=== PATIENT | female | born 2005 | race Caucasian/White ===

== ENCOUNTER 2023-09-19 23:12 | Emergency (ER) | payer OTHER ==
--- NOTE | 2023-09-19 23:44 | ER ---
Nurse's Notes [facility] Name: Elizabeth Briones Age: 17 yrs Sex: Female : 2005 Arrival Date: 09/19/2023 Time: 23:12 Bed IW1 Private MD: Diagnosis: Other acne-cystic Presentation: 09/19 23:22 Chief complaint: Patient states: she noticed an abscess on her left shoulder approx 3 ap3 days ago. patient reports the pain around it to be a 4/10 on the pain scale. Coronavirus screen: At this time, the client does not indicate any symptoms associated with coronavirus-19. Ebola Screen: No symptoms or risks identified at this time. Initial Sepsis Screen: Does the patient meet any 2 criteria? No. Patient's initial sepsis screen is negative. Does the patient have a suspected source of infection? Yes: Skin breakdown/wound. Risk Assessment: Do you want to hurt yourself or someone else? Patient reports no desire to harm self or others. Onset of symptoms was September 16, 2023. 23:22 Method Of Arrival: Ambulatory ap3 23:22 Acuity: JACKY 4 ap3 Triage Assessment: 23:25 General: Appears in no apparent distress. Behavior is calm, cooperative, appropriate ap3 for age. Pain: Complains of pain in left scapular area Pain currently is 4 out of 10 on a pain scale. Neuro: Level of Consciousness is awake, alert, obeys commands, Oriented to person, place, time, situation. Cardiovascular: Patient's skin is warm and dry. Respiratory: Airway is patent Respiratory effort is even, unlabored, Respiratory pattern is regular, symmetrical. Derm: Abscess located on left scapular area is nickel sized. Historical: - Allergies: 23:23 No Known Allergies; ap3 - Home Meds: 23:23 Lexapro Oral [Active]; levothyroxine oral [Active]; gabapentin oral [Active]; ap3 - PMHx: 23:23 Anxiety; Hypothyroidism; ap3 - Immunization history:: Client reports receiving the 2nd dose of the Covid vaccine. - Social history:: Smoking status: Patient denies any tobacco usage or history of. Screenin:26 [facility] ED Fall Risk Assessment (Adult) History of falling in the last 3 months, ap3 including since admission No falls in past 3 months (0 pts). Abuse screen: Denies threats or abuse. Nutritional screening: No deficits noted. Tuberculosis screening: No symptoms or risk factors identified. Assessment: 23:59 Reassessment: Patient appears in no apparent distress at this time. Patient is alert, bp oriented x 3, equal unlabored respirations, skin warm/dry/pink. Vital Signs: 23:22 BP 105 / 76; Pulse 103; Resp 17; Temp 98.7; Pulse Ox 100% ; Weight 49.9 kg; Pain 4/10; ap3 23:22 Pain Scale: Adult ap3 ED Course: 23:16 Patient arrived in ED. jj6 23:17 [facility] snw 23:17 Ricki Geronimo DO is Attending Physician. snw 23:23 Triage completed. ap3 23:26 Arm band placed on right wrist. ap3 23:58 Morgan Judge, RN is Primary Nurse. bp 23:59 Patient has correct armband on for positive identification. bp 23:59 No provider procedures requiring assistance completed. Patient did not have IV access bp during this emergency room visit. Administered Medications: 23:44 Drug: Doxycycline PO 100 mg PO once Route: PO; ap3 23:59 Follow up: Response: No adverse reaction bp 23:44 Drug: HYDROcodone-acetaminophen PO 5 mg-325 mg 1 tabs PO once Route: PO; ap3 09/20 00:00 Follow up: Response: No adverse reaction bp Medication: 09/19 23:59 VIS not applicable for this client. bp Outcome: 23:43 Discharge ordered by MD. snw 23:59 Discharged to home ambulatory, with family, bp 23:59 Condition: stable 23:59 Discharge instructions given to patient, Instructed on discharge instructions, follow up and referral plans. medication usage, Demonstrated understanding of instructions, follow-up care, medications, Prescriptions given X 2, 09/20 00:00 Patient left the ED. bp Signatures: Nhi Nascimento FNP-C KEEPER HEAD-Csnw Morgan Judge, RN RN bp Lisa Ortiz RN RN ap3 Reva Grimm jj6 Corrections: (The following items were deleted from the chart) 09/19 23:25 23:23 Home Meds: None; ap3 ap3 23:25 23:23 PMHx: Hypoglycemia; ap3 ap3
--- NOTE | 2023-09-19 23:44 | EDPHYS ---
Physician Documentation [facility] Name: Elizabeth Briones Age: 17 yrs Sex: Female : 2005 Arrival Date: 09/19/2023 Time: 23:12 Bed IW1 Private MD: ED Physician Ricki Geronimo HPI: 09/20 00:01 This 17 yrs old Female presents to ER via Ambulatory with complaints of Abscess. snw 00:01 The patient presents with an abscess of the left trapezius. Description: well snw demarcated, mobile with overlaying erythema. Onset: The symptoms/episode began/occurred acutely. Severity of symptoms: At their worst the symptoms were very mild, mild. The patient has experienced similar episodes in the past. The patient has not recently seen a physician. Historical: - Allergies: 09/19 23:23 No Known Allergies; ap3 - Home Meds: 23:23 Lexapro Oral [Active]; levothyroxine oral [Active]; gabapentin oral [Active]; ap3 - PMHx: 23:23 Anxiety; Hypothyroidism; ap3 - Immunization history:: Client reports receiving the 2nd dose of the Covid vaccine. - Social history:: Smoking status: Patient denies any tobacco usage or history of. ROS: 23:57 Constitutional: Negative for fever, chills, and weight loss, Eyes: Negative for injury, snw pain, redness, and discharge, ENT: Negative for injury, pain, and discharge, Neck: Negative for injury, pain, and swelling, Cardiovascular: Negative for chest pain, palpitations, and edema, Respiratory: Negative for shortness of breath, cough, wheezing, and pleuritic chest pain, Abdomen/GI: Negative for abdominal pain, nausea, vomiting, diarrhea, and constipation, Back: Negative for injury and pain, : Negative for injury, bleeding, discharge, and swelling, MS/Extremity: Negative for injury and deformity, Neuro: Negative for headache, weakness, numbness, tingling, and seizure, Psych: Negative for depression, anxiety, suicide ideation, homicidal ideation, and hallucinations, 23:57 Skin: Positive for abscess, of the left upper scapular area, Exam: 23:57 Constitutional: This is a well developed, well nourished patient who is awake, alert, snw and in no acute distress. Head/Face: Normocephalic, atraumatic. Eyes: Pupils equal round and reactive to light, extra-ocular motions intact. Lids and lashes normal. Conjunctiva and sclera are non-icteric and not injected. Cornea within normal limits. Periorbital areas with no swelling, redness, or edema. ENT: Nares patent. No nasal discharge, no septal abnormalities noted. Tympanic membranes are normal and external auditory canals are clear. Oropharynx with no redness, swelling, or masses, exudates, or evidence of obstruction, uvula midline. Mucous membranes moist. Neck: Trachea midline, no thyromegaly or masses palpated, and no cervical lymphadenopathy. Supple, full range of motion without nuchal rigidity, or vertebral point tenderness. No Meningismus. Chest/axilla: Normal chest wall appearance and motion. Nontender with no deformity. No lesions are appreciated. Cardiovascular: Regular rate and rhythm with a normal S1 and S2. No gallops, murmurs, or rubs. Normal PMI, no JVD. No pulse deficits. Respiratory: Lungs have equal breath sounds bilaterally, clear to auscultation and percussion. No rales, rhonchi or wheezes noted. No increased work of breathing, no retractions or nasal flaring. Abdomen/GI: Soft, non-tender, with normal bowel sounds. No distension or tympany. No guarding or rebound. No evidence of tenderness throughout. Back: No spinal tenderness. No costovertebral tenderness. Full range of motion. MS/ Extremity: Pulses equal, no cyanosis. Neurovascular intact. Full, normal range of motion. Neuro: Awake and alert, GCS 15, oriented to person, place, time, and situation. Cranial nerves II-XII grossly intact. Motor strength 5/5 in all extremities. Sensory grossly intact. Cerebellar exam normal. Normal gait. Psych: Awake, alert, with orientation to person, place and time. Behavior, mood, and affect are within normal limits. 23:57 Skin: Appearance: normal except for affected area, acne to face neck and upper chest and back, mild scarring , 23:57 Skin: Appearance: normal except for affected area, acne to face neck and upper chest and back, mild scarring , left upper scapular area with mobile cyst with tenderness and erythema. Cystic acne. Vital Signs: 23:22 BP 105 / 76; Pulse 103; Resp 17; Temp 98.7; Pulse Ox 100% ; Weight 49.9 kg; Pain 4/10; ap3 23:22 Pain Scale: Adult ap3 MDM: 23:32 Patient medically screened. snw Administered Medications: 23:44 Drug: Doxycycline PO 100 mg PO once Route: PO; ap3 23:59 Follow up: Response: No adverse reaction bp 23:44 Drug: HYDROcodone-acetaminophen PO 5 mg-325 mg 1 tabs PO once Route: PO; ap3 09/20 00:00 Follow up: Response: No adverse reaction bp Disposition: 00:51 I was immediately available on-site in the Emergency Department for consultation in the ms3 care of the patient. Disposition Summary: 09/19/23 23:43 Discharge Ordered Notes: Location: Home snw Condition: Stable snw Diagnosis - Other acne - cystic snw Followup: snw - With: Emergency Department - When: As needed - Reason: Worsening of condition Followup: snw - With: Private Physician - When: 2 - 3 days - Reason: Recheck today's complaints, Continuance of care, Re-evaluation by your physician Discharge Instructions: - Discharge Summary Sheet snw - Acne snw Forms: - Medication Reconciliation Form snw - Thank You Letter snw - Antibiotic Education snw - Prescription Opioid Use snw - Patient Portal Instructions snw - Leadership Thank You Letter snw Prescriptions: - Differin 0.3 % Topical gel with pump - apply 1 application TOPICAL route every day at bedtime; 1 Unspecified; Refills: snw 0, Product Selection Permitted - Doxycycline Hyclate 100 mg Oral Tablet - take 1 tablet ORAL route every 12 hours; 20 tablet; Refills: 0, Product snw Selection Permitted Signatures: Nhi Nascimento, GARDENER-C GARDENER-Csnw Lisa Ortiz, RN RN ap3 Ricki Geronimo DO DO ms3 Morgan Judge RN bp Corrections: (The following items were deleted from the chart) 09/19 23:25 23:23 Home Meds: None; ap3 ap3 23:25 23:23 PMHx: Hypoglycemia; ap3 ap3
[2023-09-19] MEDS ORDERED: DOXYCYCLINE 100 MG CAP PO ONE (23:57)
[2023-09-19] MEDS ORDERED: HYDROCODONE/APAP 5/325 MG TAB ONE (23:57)
== END 2023-09-20 | disposition home or self-care (01) ==
LOC: ER 23:12
DX: L70.0 Acne vulgaris (principal)
CPT/HCPCS: 99283

== ENCOUNTER → 2023-11-21 | Emergency (ER) | payer SELFPAY ==
[~2023-11-21] MED LIST: NA CHLORIDE 0.9% 1,000 ML ONE; NA CHLORIDE 0.9% 50 ML ONE; ONDANSETRON 4 MG/2 ML VIAL ONE; PROMETHAZINE INJ 25 MG/ML AMP ONE
[2023-11-21 20:58] LABS: Absolute Lymphocytes (CBC) 1.9 K/uL (0.7-4.9); Hematocrit 41.6 % (36.0-45.0); Lymphocytes % 19.6 % (15.3-44.8); MCV 88.5 fL (80-100); MPV 7.4 fL (7.6-11.3); Platelets 354 thou/uL (152-406)
[2023-11-21 21:22] LABS: SARS-CoV-2 Antigen Rapid Res Negative (Negative)
[2023-11-21 21:24] LABS: Albumin 4.1 g/dL (3.4-5.0); Bilirubin Total 1.4 mg/dL (0.2-1.0); Potassium 3.5 mEq/L (3.5-5.1); Protein, Total 8.5 g/dL (6.4-8.2)
[2023-11-21 21:48] LABS: Specific Gravity 1.022 (1.005-1.030)
[2023-11-21 21:58] LABS: Specific Gravity 1.022 (1.005-1.030); Urine Bacteria None Seen /HPF (<20); Urine Bilirubin NEGATIVE (Negative); Urine Blood 1+ (Negative); Urine Clarity Clear (Clear); Urine Color Light-Yellow (Yellow); Urine Glucose NEGATIVE (Negative); Urine Mucus Slight /HPF (None Seen); Urine Protein TRACE (Negative); Urine RBC <5 /HPF (None Seen); Urine Urobilinogen Normal (Normal); Urine pH 5.5 (5.0-7.0)
--- NOTE | 2023-11-21 22:43 | RAD REPORT ---
EXAM DESCRIPTION: CT - Abdomen Pelvis W Contrast - 11/21/2023 10:23 pm CLINICAL HISTORY: ABD PAIN COMPARISON: No comparisons TECHNIQUE: Thin cut axial CT imaging of the abdomen and pelvis was performed following intravenous a dministration of 100 mL Isovue 300. Multiplanar reformats were generated and reviewed. All CT scans are performed using dose optimization technique as appropriate and may include automated exposure control or mA/KV adjustment according to patient size. FINDINGS: No suspicious findings in the lung bases. The liver, spleen, adrenal glands, and pancreas show no suspicious findings. Gallbladder and biliary tree are also without suspicious finding. Symmetric renal function is seen with no hydronephrosis or suspicious renal mass. No dilated bowel loops or bowel wall thickening. No free air, free fluid or inflammatory stranding. N o hernia, mass or bulky lymphadenopathy. The urinary bladder is decompressed limiting evaluation, wit hout significant finding. No suspicious bony findings. IMPRESSION: No acute intra-abdominal process.
--- NOTE | 2023-11-22 00:01 | EDPHYS ---
Physician Documentation [facility] Name: Elizabeth Briones Age: 18 yrs Sex: Female : 2005 Arrival Date: 11/21/2023 Time: 19:21 Bed 10 Private MD: ED Physician Austyn Huynh HPI: 11/21 19:37 This 18 yrs old Female presents to ER via Ambulatory with complaints of sb4 Vomiting/Diarrhea, Fever, Body aches. 19:37 The patient presents to the emergency department with nausea, vomiting, diarrhea, sb4 abdominal pain. Onset: The symptoms/episode began/occurred 3 day(s) ago. Possible causes: unknown. The symptoms are aggravated by food , The symptoms are alleviated by nothing. Associated signs and symptoms: Pertinent positives: abdominal pain, diarrhea, fever, nausea, vomiting, Pertinent negatives: dysuria, GI bleeding, vaginal discharge. The patient has not experienced similar symptoms in the past. n/v/d, abd pain, FLS x 3 days. can't hold anything down. 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 - Social history:: Smoking status: Patient denies any tobacco usage or history of. ROS: 19:37 Respiratory: Negative for shortness of breath, cough, wheezing, and pleuritic chest sb4 pain, 19:37 Constitutional: Positive for body aches, fever, malaise, poor PO intake, 19:37 Abdomen/GI: Positive for abdominal pain, nausea, vomiting, and diarrhea, 19:37 All other systems are negative, Exam: 19:37 Constitutional: This is a well developed, well nourished patient who is awake, alert, sb4 and in no acute distress. Head/Face: Normocephalic, atraumatic. Eyes: Extra-ocular motions intact. Periorbital areas with no swelling, redness, or edema. ENT: Mucous membranes moist. Cardiovascular: Regular rate and rhythm with a normal S1 and S2. Respiratory: Lungs have equal breath sounds bilaterally, clear to auscultation and percussion. No rales, rhonchi or wheezes noted. No increased work of breathing, no retractions or nasal flaring. Abdomen/GI: Soft, non-tender, no distension. Back: No spinal tenderness. No costovertebral tenderness. Full range of motion. Skin: Warm, dry with normal turgor. Normal color with no rashes, no lesions, and no evidence of cellulitis. MS/ Extremity: Pulses equal, no cyanosis. Neurovascular intact. Full, normal range of motion. Neuro: Awake and alert, GCS 15, oriented to person, place, time, and situation. Motor strength 5/5 in all extremities. Sensory grossly intact. Vital Signs: 19:31 BP 109 / 84; Pulse 69; Resp 18; Temp 98.2; Pulse Ox 99% on R/A; Weight 47.63 kg; Height cm10 5 ft. 1 in. ; Pain 7/10; 23:02 BP 131 / 78; Pulse 75; Resp 18 S; Temp 98.3(O); Pulse Ox 100% on R/A; as6 19:31 Body Mass Index 19.84 (47.63 kg, 154.94 cm) - Percentile 25.5 % cm10 19:31 Pain Scale: Adult cm10 MDM: 19:23 Patient medically screened. sb4 19:37 Differential diagnosis: appendicitis, viral gastroenteritis, gastroenteritis, flu, sb4 covid. 11/22 00:00 Data reviewed: vital signs, nurses notes, lab test result(s), radiologic studies, and sb4 as a result, I will discharge patient. Counseling: I had a detailed discussion with the patient and/or guardian regarding the historical points, exam findings, and any diagnostic results supporting the discharge/admit diagnosis, lab results, radiology results, to return to the emergency department if symptoms worsen or persist or if there are any questions or concerns that arise at home. 11/21 19:36 Order name: CBC with Diff; Complete Time: 21:14 sb4 11/21 19:36 Order name: CMP; Complete Time: 21:30 sb4 11/21 19:36 Order name: Lipase; Complete Time: 21:30 sb4 11/21 19:36 Order name: Test, Urine; Complete Time: 21:50 sb4 11/21 19:36 Order name: Urinalysis w/ reflexes; Complete Time: 21:59 sb4 11/21 19:36 Order name: SARS RAPID; Complete Time: 21:23 sb4 11/21 19:36 Order name: Flu; Complete Time: 21:30 sb4 11/21 19:36 Order name: CT Abd/Pelvis - IV Contrast Only; Complete Time: 22:44 sb4 11/21 19:36 Order name: IV Saline Lock; Complete Time: 20:46 sb4 11/21 19:36 Order name: Labs collected and sent; Complete Time: 20:46 sb4 Administered Medications: 11/21 20:49 Drug: NS 0.9% IV 1000 ml IV at 1 bolus Per protocol; 1000 mL bolus Route: IV; Rate: 1 ko1 bolus; Site: right antecubital; 11/22 00:11 Follow up: Response: No adverse reaction; IV Status: Completed infusion; IV Intake: as6 1000ml 11/21 20:50 Drug: Ondansetron IVP 4 mg IVP once; over 2 minutes Route: IVP; Site: right antecubital;ko1 11/22 00:11 Follow up: Response: No adverse reaction as6 11/21 23:03 Drug: Promethazine IVP 12.5 mg IVP once Route: IVP; Site: right antecubital; as6 11/22 00:11 Follow up: Response: No adverse reaction as6 Disposition: 07:32 Co-signature as Attending Physician, Austyn Huynh MD I agree with the assessment sp4 and plan of care. I reviewed the patient's care provided by the Advanced Practice Provider and agree with the diagnosis and treatment plan. Disposition Summary: 11/22/23 00:00 Discharge Ordered Notes: Location: Home sb4 Problem: new sb4 Symptoms: have improved sb4 Condition: Stable sb4 Diagnosis - Noninfective gastroenteritis and colitis, unspecified sb4 Followup: sb4 - With: Emergency Department - When: As needed - Reason: Trouble breathing, Worsening of condition Discharge Instructions: - Discharge Summary Sheet sb4 - Viral Gastroenteritis, Adult, [id number] sb4 Forms: - Medication Reconciliation Form sb4 - Thank You Letter sb4 - Antibiotic Education sb4 - Prescription Opioid Use sb4 - Patient Portal Instructions sb4 - Leadership Thank You Letter sb4 Prescriptions: - promethazine 25 mg Oral Tablet - take 1 tablet ORAL route every 6 hours As needed; 20 tablet; Refills: 0, sb4 Product Selection Permitted Signatures: Dispatcher [employer] Girma Waldron, RN RN as6 Natty Montoya, RN RN ko1 Manisha Gómez, MIHAI HOLM sb4 Austyn Huynh MD MD sp4 Shyla Rajput RN RN cm10
--- NOTE | 2023-11-22 00:01 | ER ---
Nurse's Notes [facility] Name: Elizabeth Briones Age: 18 yrs Sex: Female : 2005 Arrival Date: 11/21/2023 Time: 19:21 Bed 10 Private MD: Diagnosis: Noninfective gastroenteritis and colitis, unspecified Presentation: 11/21 19:31 Chief complaint: Patient states: NAUSEA, VOMITING, DIARRHEA, FEVER AND BODY ACHES X2 cm10 DAYS. Coronavirus screen: Vaccine status: Patient reports receiving the 2nd dose of the covid vaccine. Client denies travel out of the [place] in the last 14 days. Ebola Screen: Patient denies travel to an Ebola-affected area in the 21 days before illness onset. No symptoms or risks identified at this time. Initial Sepsis Screen: Does the patient meet any 2 criteria? No. Patient's initial sepsis screen is negative. Does the patient have a suspected source of infection? No. Patient's initial sepsis screen is negative. Risk Assessment: Do you want to hurt yourself or someone else? Patient reports no desire to harm self or others. Onset of symptoms was November 21, 2023. 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 - Social history:: Smoking status: Patient denies any tobacco usage or history of. Screenin/25 00:10 [facility] ED Fall Risk Assessment (Adult) Score/Fall Risk Level 0 - 2 = Low Risk. Abuse as6 screen: Denies threats or abuse. Denies injuries from another. Nutritional screening: No deficits noted. Tuberculosis screening: No symptoms or risk factors identified. Assessment: 11/21 20:30 General: Appears in no apparent distress. uncomfortable, Behavior is calm, cooperative, jb4 appropriate for age. Pain: Complains of pain in generalized body aches. Neuro: Level of Consciousness is awake, alert, obeys commands, Oriented to person, place, time, situation. Cardiovascular: Patient's skin is warm and dry. Respiratory: Airway is patent Respiratory effort is even, unlabored, Respiratory pattern is regular, symmetrical. GI: Abdomen is flat, non-distended, Reports diarrhea, nausea. : No signs and/or symptoms were reported regarding the genitourinary system. EENT: No signs and/or symptoms were reported regarding the EENT system. Derm: Skin is intact, Skin is pink, warm \T\ dry. Musculoskeletal: Circulation, motion, and sensation intact. Range of motion: intact in all extremities. 23:03 General: still c/o nausea . as6 Vital Signs: 19:31 BP 109 / 84; Pulse 69; Resp 18; Temp 98.2; Pulse Ox 99% on R/A; Weight 47.63 kg; Height cm10 5 ft. 1 in. ; Pain 7/10; 23:02 BP 131 / 78; Pulse 75; Resp 18 S; Temp 98.3(O); Pulse Ox 100% on R/A; as6 19:31 Body Mass Index 19.84 (47.63 kg, 154.94 cm) - Percentile 25.5 % cm10 19:31 Pain Scale: Adult cm10 ED Course: 19:22 Patient arrived in ED. sb4 19:22 Manisha Gómez PA-C is PHCP. sb4 19:22 Austyn Huynh MD is Attending Physician. sb4 19:29 Manisha Gómez PA-C is PHCP. sb4 19:29 Austyn Huynh MD is Attending Physician. sb4 19:32 Triage completed. cm10 19:33 Arm band placed on Patient placed in waiting room. cm10 20:45 Inserted saline lock: 22 gauge in right antecubital area, using aseptic technique. ko1 Blood collected. 20:46 Flu Sent. ko1 20:46 SARS RAPID Sent. ko1 20:46 CBC with Diff Sent. ko1 20:46 CMP Sent. ko1 20:46 Lipase Sent. ko1 22:25 CT Abd/Pelvis - IV Contrast Only In Process Unspecified. EDMS 22:48 iGrma Barr, RN is Primary Nurse. as6 11/22 00:10 Bed in low position. Call light in reach. Provided Education on: follow up. as6 00:10 No provider procedures requiring assistance completed. IV discontinued, intact, as6 bleeding controlled, No redness/swelling at site. Pressure dressing applied. Administered Medications: 11/21 20:49 Drug: NS 0.9% IV 1000 ml IV at 1 bolus Per protocol; 1000 mL bolus Route: IV; Rate: 1 ko1 bolus; Site: right antecubital; 11/22 00:11 Follow up: Response: No adverse reaction; IV Status: Completed infusion; IV Intake: as6 1000ml 11/21 20:50 Drug: Ondansetron IVP 4 mg IVP once; over 2 minutes Route: IVP; Site: right antecubital;ko1 11/22 00:11 Follow up: Response: No adverse reaction as6 11/21 23:03 Drug: Promethazine IVP 12.5 mg IVP once Route: IVP; Site: right antecubital; as6 11/22 00:11 Follow up: Response: No adverse reaction as6 Medication: 00:11 VIS not applicable for this client. as6 Intake: 00:11 IV: 1000ml; Total: 1000ml. as6 Outcome: 00:00 Discharge ordered by . sb4 00:11 Discharged to home ambulatory, as6 00:11 Condition: stable 00:11 Discharge instructions given to patient, Instructed on discharge instructions, follow up and referral plans. medication usage, Demonstrated understanding of instructions, follow-up care, medications, Prescriptions given X 1, 00:11 Patient left the ED. as6 Signatures: Dispatcher [employer] EDMS Abner Boateng RN CAROL jb4 Girma Barr RN RN as6 Natty Montoya RN RN ko1 Brown, Sophia, PA-C PAShyla Price RN RN cm10
[2023-11-22 01:33] VITALS: BP 131/78; TEMP 98.3; O2SAT 100
== END ==
LOC: ER 19:21
DX: K52.9 Noninfective gastroenteritis and colitis, unspecified (principal); Z11.52 Encounter for screening for COVID-19
CPT/HCPCS: 36415; 74177; 80053; 81001; 81025; 83690; 85025; 87804; 87811; 96361; 96374; 96375; 99284; J2405; J2550; J7030; Q9967

== ENCOUNTER 2024-10-30 20:32 | Emergency (ER) | payer SELFPAY ==
--- OUTSIDE RECORDS SUMMARY | 2024-10-30 20:35 | XMS REPORT | Continuity of Care Document ---
Author Name Unknown Address [address] [facility] [address] [place] [address] [facility] thconnect Address [address] [facility] [place] [address] Care Team Providers Care [employer] Dismantler Name Role Phone PCP, PATIENT DOES NOT HAVE A Primary Care Physic bri Unavailable Ridge Solomon Attending Clinician RIDGE BURCIAGA Attending Clinician Unavailab le RIDGE BURCIAGA Admitting Clinician Unavailab le Allergies, Adverse Reactions, Alerts Allergy Name Allergy Type Status Severity Reaction(s) Onset Date Inactive Date Treating Clinician Comments Source Adhesive Propensi ty to adverse reaction s Active Rash 2023-0 6-27 00:00: 00 [facility] Latex Propensi ty to adverse reaction s Active Rash 2023-0 6-27 00:00: 00 [facility] ADHESIVE Drug Class Active Rash 4-0 6-27 00:00: 00 [facility] LATEX DRUG INGREDI Active ITCHING 4-0 -27 00:00: 00 [facility] NO KNOWN ALLERGIE S Drug Class Active [facility] Social History Social Habit Start Date Stop Date Quantity Comments Source Sexual orientation U [facility] Sex assigned at 2005 00:00:00 2005 00:00:00 [facility] Smoking Status Start Date Stop Date Source Tobacco smoking consumption unknown [facility] Medications Ordered Medication Name Filled Medication Name Start Date Stop Date Current Medication? Ordering Clinician Indication Dosage Frequency Signature (SIG) Comments Components Source dicyclomine (BENTYL) tablet 20 mg 05-26 00:45: 00 05-26 00:42 :00 No 20mg 20 mg, Oral, ONCE, 1 dose, On Thuy 05/25/24 at 1945, MIKE [facility] iopamidol (ISOVUE 370-500 mL) injection 83 mL 05-26 00:00: 00 05-26 00:15 :00 No [id number] 83mL 83 mL, Intravenou s, ONCE, 1 dose, On Thuy 05/25/24 at 1915, Routine [facility] ondansetron (ZOFRAN (PF)) injection 4 mg 05-25 22:45: 00 05-25 23:43 :00 No 4mg 4 mg, Slow IV Push, ONCE, 1 dose, [facility] Thuy 05/25/24 [facility] 1745[facility] capsule 05-25 00:00: 00 06-02 04:59 :00 No [id number] 10mg Take 1 capsule by mouth 4 (four) times daily for 7 days. [facility] ondansetron 4 mg disintegrat ing tablet 05-25 00:00: 00 05-31 04:59 :00 No [id number] 4mg Take 1 tablet by mouth every 8 (eight) hours as needed for Nausea and Vomiting (N/V) for up to 5 days. [facility] Vital Signs Vital Name Observation Time Observation Value Comments S ource Systolic blood pressure 2024-05-26 00:40:00 127 mm[Hg] [facility] Diastolic blood pressure 2024-05-26 00:40:00 76 mm[Hg] [facility] Heart rate 2024-05-26 00:40:00 90 /min [facility] Respiratory rate 2024-05-26 00:40:00 16 /min [facility] Oxygen saturation in Arterial blood by Pulse oximetry 2024-05-26 00:40:00 99 /min [facility] Body temperature 2024-05-25 22:37:00 37.11 Maty [facility] Body height 2024-05-25 22:37:00 154.9 cm [facility] Body weight 2024-05-25 22:37:00 50.349 kg [facility] BMI 2024-05-25 22:37:00 20.97 kg/m2 [facility] Procedures Procedure Date / Time Performed Performing Clinicia n Source LIPASE 2024-05-25 23:40:00 Ridge Burciaga Un [facility] COMP. METABOLIC PANEL (74264) 2024-05-25 23:40:00 Ridge Burciaga [facility] CBC WITH DIFF 2024-05-25 23:40:00 [facility]INALYSIS 2024-05-25 23:40:00 Ridge Burciaga Un [facility] POCT TEST 2024-05-25 22:48:00 Ridge Burciaga [facility] Encounters Start Date/Time End Date/Time Encounter Type Admission Type Attending Clinicians Care Facility Care Department Encounter ID Source 2024-05-25 17:40:00 2024-05-25 20:08:00 Emergency Ridge Burciaga [facility] [id number] [facility] 2024-05-25 17:40:00 2024-05-25 20:08:00 Emergency X RIDGE BURCIAGA TAS[facility] ERT [id number] [facility] Results Test Description Test Time Test Comments Results Result Co mments Source [facility] Test Item Value Reference Range Interpretation Comme nts LIPASE (test code = 8473919653) 134 U/L 0-220 Lab Interpretation (test cod e = 66227-2) [facility] [id number] 23:57:42* Test Item Value Reference Range Interpretation Comme nts WBC (test code = 6690-2) 7.24 4.30-11.10 RBC (test code = 789-8) 4.38 3.93-5.25 HGB (test code = 718-7) 13.6 g/dL 11.6-15.0 HCT (test code = 4544-3) 39.4 % 35.7-45.2 MCV (test code = 787-2) 90.0 fL 80.6-95.5 MCH (test code = 785-6) 31.1 pg 25.9-32.8 MCHC (test code = 786-4) 34.5 g/dL 31.6-35.1 RDW-SD (test code = 69722-5) 38.7 fL 39.0-49.9 L RDW-CV (test code = 788-0) 11.8 % 12.0-15.5 L PLT (test code = 777-3) 305 166-358 MPV (test code = 58794-9) 9.7 fL 9.5-12.9 NRBC/100 WBC (test code = 5536530273) 0.0 0.0-10.0 NRBC x10^3 (test code = 8295487654) See_Comment [Automated messa ge] The system which generated this result transmitted reference range: 10*3/?L. The reference range was not used to interpret this result as normal/abnormal. GRAN MAT (NEUT) % (test code = 770-8) 66.8 % IMM GRAN % (test code = 7499893202) 0.10 % LYMPH % (test code = 736-9) 24.2 % MONO % (test code = 5905-5) 5.4 % EOS % (test code = 713-8) 2.8 % BASO % (test code = 706-2) 0.7 % GRAN MAT x10^3(ANC) (test code = 4150405870) 4.84 10*3/uL 1.88-7.09 IMM GRAN x10^3 (test code = 1465085148) 0.00-0.06 LYMPH x10^3 (test code = 731-0) 1.75 10*3/uL 1.32-3.29 MONO x10^3 (test code = 742-7) 0.39 10*3/uL 0.33-0.92 EOS x10^3 (test code = 711-2) 0.20 10*3/uL 0.03-0.39 BASO x10^3 (test code = 704-7) 0.05 10*3/uL 0.01-0.07 Lab Interpretation (test code = 13476-3) [id number] 22:48:00* Test Item Value Reference Range Interpretation Comme nts POCT PREG (test code = 1605) Negative On board controls acceptable with C Line (test code = 3574) Yes POCT PREG LOT # (test code = 3575) [id number] POCT PREG TEST DATE ( test code = 3576) 2025-04-01 Lab Interpretation (test cod e = 53194-1) Normal [facility] Notes Date/Time Note Provider Source 2024-05-25 20:03:53 Pt given printed and verbal discharge instructions regarding n/v diarrhea, encouraged hydration, Prescriptions provided Pt verbalized understanding of instructions, pt awake alert oriented, resp reg unlabored, skin w/d, color appropriate for race, moves all ext well,pt encouraged to follow up with pcp. Advised to seek medical attention for new/prolonged/worsening of symptoms. No adverse reaction to meds given in ER noted upon discharge PIV d'cd, dressing to site, catheter in tact. Awake, alert oriented, resp reg unlabored, skin w/d, pt leaving amb with steady gait, in no apparent distress. Fabiana Lucero RN [facility] 2024-05-25 17:32:38 Patient arrived ambulatory via pov states she had vomiting and diarrhea for 2 days that began on Wednesday, subsided and began again today. Patient having pain in umbilical area, denies urinary symptoms. Hx of Thyroid problems T [facility]
[2024-10-30 22:41] LABS: Specific Gravity 1.022 (1.005-1.030)
[2024-10-30 22:42] LABS: Sqamous Epithelial <5 /HPF (None Seen); Urine Bacteria <20 /HPF (<20); Urine Crystals Unidentified Few /HPF (None Seen); Urine Culture Reflex Order REFLEXED; Urine Micro Reflex YN NO BILL MICROSCOPIC; Urine Mucus 1+ /HPF (None Seen); Urine RBC >50 /HPF (None Seen); Urine WBC >50 /HPF (<5); Urine WBC Clump Occasional /HPF (None Seen); Urine Yeast (Budding) Few /HPF (None Seen)
--- NOTE | 2024-10-30 23:06 | EDPHYS ---
Physician Documentation [facility] Name: Elizabeth Briones Age: 19 yrs Sex: Female : 2005 Arrival Date: 10/30/2024 Time: 20:32 Bed 12 Private MD: ED Physician German Salomon HPI: 10/30 21:20 This 19 yrs old Female presents to ER via Ambulatory with complaints of Urinary cp Retention. 21:20 The patient presents with urinary symptoms, dysuria, frequency, urgency. cp 21:20 Onset: The symptoms/episode began/occurred 5 day(s) ago, and became worse today. cp Associated signs and symptoms: Pertinent negatives: diarrhea, fever, vaginal bleeding, vomiting. Severity of symptoms: in the emergency department the symptoms are unchanged, despite home interventions. Historical: - Allergies: 21:10 No Known Allergies; cm10 - PMHx: 21:10 Anxiety; Hypothyroidism; cm10 - Immunization history:: Adult Immunizations up to date. - Infectious Disease History:: Denies. - Social history:: Smoking status: Patient denies any tobacco usage or history of. ROS: 21:25 Constitutional: Negative for body aches, chills, fever, poor PO intake, cp 21:25 Cardiovascular: Negative for chest pain, cp 21:25 Respiratory: Negative for cough, shortness of breath, wheezing, 21:25 Abdomen/GI: Positive for abdominal pain, Negative for vomiting, diarrhea, constipation, 21:25 Back: Positive for flank pain, 21:25 : Positive for urinary symptoms, urinary frequency, burning with urination, difficulty urinating, Negative for vaginal bleeding, 21:25 Neuro: Negative for altered mental status, dizziness, weakness, 21:25 All other systems are negative, Exam: 21:30 Constitutional: The patient appears in no acute distress, alert, awake, non-toxic, well cp developed, well nourished, anxious, uncomfortable, 21:30 Head/Face: Normocephalic, atraumatic. cp 21:30 Eyes: Periorbital structures: appear normal, Conjunctiva: normal, no exudate, no injection, Sclera: no appreciated abnormality, Lids and lashes: appear normal, bilaterally, 21:30 ENT: External ear(s): are unremarkable, Nose: is normal, Mouth: Lips: moist, Oral mucosa: moist, Posterior pharynx: Airway: no evidence of obstruction, patent, 21:30 Chest/axilla: Inspection: normal, 21:30 Cardiovascular: Rate: normal, Rhythm: regular, 21:30 Respiratory: the patient does not display signs of respiratory distress, Respirations: normal, no use of accessory muscles, no retractions, Breath sounds: are clear throughout, no decreased breath sounds, no stridor, no wheezing, 21:30 Abdomen/GI: Inspection: abdomen appears normal, Palpation: soft, in all quadrants, mild abdominal tenderness, in the suprapubic area, 21:30 Back: CVA tenderness, that is mild, is noted bilaterally, 21:30 Neuro: Orientation: to person, place \T\ time. Mentation: is normal, Motor: moves all fours, strength is normal, Gait: is steady, Vital Signs: 21:09 BP 125 / 87; Pulse 98; Resp 16; Temp 98.2; Pulse Ox 98% on R/A; Weight 49.9 kg; Height cm10 5 ft. 1 in. ; Pain 8/10; 23:33 BP 114 / 73; Pulse 74; Resp 16; Pulse Ox 98% ; vc1 21:09 Body Mass Index 20.78 (49.90 kg, 154.94 cm) cm10 21:09 Pain Scale: Adult cm10 MDM: 21:14 Medical Screening Exam initiated cp 22:00 Differential diagnosis: appendicitis, pelvic inflammatory disease, urinary tract cp infection, pyelonephritis, kidney stone. 23:05 Data reviewed: vital signs, nurses notes, lab test result(s). 23:05 I considered the following discharge prescriptions or medication management in the emergency department Medications were administered in the Emergency Department. See MAR. 23:05 Counseling: I had a detailed discussion with the patient and/or guardian regarding the historical points, exam findings, and any diagnostic results supporting the discharge/admit diagnosis, lab results, to return to the emergency department if symptoms worsen or persist or if there are any questions or concerns that arise at home. Response to treatment: the patient's symptoms have mildly improved after treatment, and as a result, I will discharge patient. 10/30 21:15 Order name: Urine Microscopic Only; Complete Time: 22:46 cp 10/30 22:46 Interpretation: Normal except: UWBC >50; URBC >50; UWBC Clump Occasional; BYST Few. cp 10/30 21:15 Order name: Test, Urine; Complete Time: 22:46 cp 10/30 22:45 Order name: Urine Culture EDMS 10/30 22:50 Order name: Bladder Scanner; Complete Time: 23:21 cp Administered Medications: 23:27 Drug: Phenazopyridine PO 100 mg PO once Route: PO; vc1 23:27 Follow up: Response: Medication administered at discharge. vc1 23:27 Drug: Nitrofurantoin PO 100 mg PO once; administer with food Route: PO; vc1 23:27 Follow up: Response: Medication administered at discharge. vc1 23:27 Drug: Ondansetron PO 4 mg PO once Route: PO; vc1 23:27 Follow up: Response: Medication administered at discharge. vc1 Disposition Summary: 10/30/24 23:05 Discharge Ordered Notes: Location: Home cp Problem: new cp Symptoms: have improved cp Condition: Stable cp Diagnosis - UTI/ Urinary tract infection, site not specified cp Followup: cp - With: Private Physician - When: 2 - 3 days - Reason: Worsening of condition Discharge Instructions: - Discharge Summary Sheet cp - Urinary Tract Infection, Adult cp Forms: - Work release form aa5 - Medication Reconciliation Form cp - Antibiotic Education cp - Prescription Opioid Use cp - Patient Portal Instructions cp - Leadership Thank You Letter cp Prescriptions: - Pyridium 100 mg Oral tablet - take 1 tablet ORAL route every 8 hours for 6 doses as needed for pain; 6 cp tablet; Refills: 0, Product Selection Permitted - Zofran 4 mg Oral tablet - take 1 tablet ORAL route every 12 hours As needed; 10 tablet; Refills: 0, cp Product Selection Permitted - Macrobid 100 mg Oral Capsule - take 1 capsule ORAL route every 12 hours for 7 days; 14 capsule; Refills: 0, cp Product Selection Permitted Signatures: Dispatcher [employer] EDOK Remy Melara PA PA cp Calcote, Vanessa RN RN vc1 Shyla Rajput RN RN cm10
--- NOTE | 2024-10-30 23:06 | ER ---
Nurse's Notes [facility] Name: Elizabeth Briones Age: 19 yrs Sex: Female : 2005 Arrival Date: 10/30/2024 Time: 20:32 Bed 12 Private MD: Diagnosis: UTI/ Urinary tract infection, site not specified Presentation: 10/30 21:09 Chief complaint: Patient states: BURNING WITH URINATION ONSET 5 DAYS AGO. PT STATES cm10 THAT SHE IS ALSO HAVING FLANK PAIN. PT STATES THAT SHE IS ALSO HAVING URINARY FREQUENCY. Coronavirus screen: Client denies travel out of the [place] in the last 14 days. Ebola Screen: Patient denies travel to an Ebola-affected area in the 21 days before illness onset. No symptoms or risks identified at this time. Initial Sepsis Screen: Does the patient meet any 2 criteria? HR > 90 bpm. Does the patient have a suspected source of infection? No. Patient's initial sepsis screen is negative. Risk Assessment: Do you want to hurt yourself or someone else? Patient reports no desire to harm self or others. Onset of symptoms was October 30, 2024. 21:09 Method Of Arrival: Ambulatory cm10 21:09 Acuity: JACKY 3 cm10 Triage Assessment: 21:11 General: Appears in no apparent distress. uncomfortable, Behavior is calm, cooperative. cm10 Neuro: No deficits noted. Level of Consciousness is awake, alert, obeys commands, Oriented to person, place, time, situation, Appropriate for age. Respiratory: No deficits noted. Airway is patent Respiratory effort is even, unlabored, Respiratory pattern is regular, symmetrical. Historical: - Allergies: 21:10 No Known Allergies; cm10 - PMHx: 21:10 Anxiety; Hypothyroidism; cm10 - Immunization history:: Adult Immunizations up to date. - Infectious Disease History:: Denies. - Social history:: Smoking status: Patient denies any tobacco usage or history of. Screenin:32 [facility] ED Fall Risk Assessment (Adult) History of falling in the last 3 months, vc1 including since admission No falls in past 3 months (0 pts) Confusion or Disorientation No (0 pts) Intoxicated or Sedated No (0 pts) Impaired Gait No (0 pts) Mobility Assist Device Used No (0 pt) Altered Elimination No (0 pt) Score/Fall Risk Level 0 - 2 = Low Risk Oriented to surroundings, Maintained a safe environment, Educated pt \T\ family on fall prevention, incl call for assistance when getting out of bed. Abuse screen: Denies threats or abuse. Nutritional screening: No deficits noted. Tuberculosis screening: No symptoms or risk factors identified. Vital Signs: 21:09 BP 125 / 87; Pulse 98; Resp 16; Temp 98.2; Pulse Ox 98% on R/A; Weight 49.9 kg; Height cm10 5 ft. 1 in. ; Pain 8/10; 23:33 BP 114 / 73; Pulse 74; Resp 16; Pulse Ox 98% ; vc1 21:09 Body Mass Index 20.78 (49.90 kg, 154.94 cm) cm10 21:09 Pain Scale: Adult cm10 ED Course: 20:33 Patient arrived in ED. [email or web address] 20:37 Remy Melara PA is PHCP. cp 20:37 German Salomon MD is Attending Physician. cp 21:10 Triage completed. cm10 21:11 Arm band placed on Patient placed in waiting room. cm10 22:33 Test, Urine Sent. kl 22:34 Urine Microscopic Only Sent. kl 23:32 No provider procedures requiring assistance completed. Patient did not have IV access vc1 during this emergency room visit. 23:33 Bed in low position. Pulse ox on. NIBP on. vc1 23:33 Provided Education on: complete abx. vc1 Administered Medications: 23:27 Drug: Phenazopyridine PO 100 mg PO once Route: PO; vc1 23:27 Follow up: Response: Medication administered at discharge. vc1 23:27 Drug: Nitrofurantoin PO 100 mg PO once; administer with food Route: PO; vc1 23:27 Follow up: Response: Medication administered at discharge. vc1 23:27 Drug: Ondansetron PO 4 mg PO once Route: PO; vc1 23:27 Follow up: Response: Medication administered at discharge. vc1 Medication: 23:33 VIS not applicable for this client. vc1 Outcome: 23:05 Discharge ordered by . cp 23:33 Discharged to home ambulatory, vc1 23:33 Condition: good 23:33 Discharge instructions given to patient, Instructed on discharge instructions, follow up and referral plans. medication usage, Demonstrated understanding of instructions, follow-up care, medications, Prescriptions given X 3, 23:34 Patient left the ED. vc1 Signatures: Leora Andrade, RN RN Remy Rao PA PA cp Jeffries, Jennifer [email or web address] Mara Ross RN RN vc1 Shyla Rajput RN RN cm10
[2024-10-30] MEDS ORDERED: ONDANSETRON 4 MG (ODT) TAB ONE (23:23)
[2024-10-30] MEDS ORDERED: PHENAZOPYRIDINE 100MG TAB PO ONE (23:23)
[2024-10-30] MEDS ORDERED: NITROFURAN MACRO 100 MG CAP PO ONE (23:24)
[2024-10-31 03:02] VITALS: TEMP 98.2; O2SAT 98
[2024-10-31 03:04] VITALS: BP 114/73
== END 2024-10-30 23:34 | disposition home or self-care (01) ==
LOC: ER 20:32
DX: N39.0 Urinary tract infection, site not specified (principal)
CPT/HCPCS: 81015; 81025; 87077; 87086; 87088; 87186; 99284; Q0162